=== PATIENT | female | born 1940 | race Caucasian/White ===

== ENCOUNTER → 2016-09-18 | Outpatient (CLI) | payer OTHER, BC | END | disposition home or self-care (01) | DX: M16.11 Unilateral primary osteoarthritis, right hip (principal); M25.551 Pain in right hip; M25.651 Stiffness of right hip, not elsewhere classified; R26.2 Difficulty in walking, not elsewhere classified; M62.89 Other specified disorders of muscle | CPT/HCPCS: 97110 GP; 97150 GO; 97161 GP; 97165 GO; G8978 GP; G8979 GP; G8980 GP; G8987 GO; G8988 GO; G8989 GO ==

== ENCOUNTER 2016-10-15 06:44 | Inpatient (IN) | payer OTHER, BC ==
[~2016-10-15] VITALS: Ht 167.6 cm; Wt 76.3 kg
[~2016-10-15 06:44] MED LIST: AROMASIN25 MG PO; CALCIUM MAGNES1 EAC1 PO; CELEBREX200 MG PO; CELEXA40 MG PO; COENZYME Q1010 M1 PO; COZAAR100 MG PO; HYDROCHLOROTHIA25 MG PO; KRILL OIL500 MG PO; LO-DOSE ASPIRIN81 M2 PO; MULTIPLE VITAM1 EAC4 PO; NORVASC10 MG PO; PRAVACHOL20 MG PO; PRILOSEC10 MG PO; PROBIOTIC1 EAC1 PO; TOPROL XL100 MG PO; TYLENOL ARTHRI650 MG PO; ULTRAM50 MG PO; VITAMIN D31000 UNIT PO; VOLTAREN 1% GE100 GM TP; XALATAN2.5 ML BOTH EYES; XANAX0.5 MG PO; ZEBUTAL 50-3251 EACH PO
[2016-10-15 07:28] VITALS: BP 145/72
[2016-10-15 13:03] VITALS: BP 114/56
[2016-10-15 13:18] LABS: HEMATOCRIT 33.7 % (36.0-46.0); MCH 33.2 PG (29.0-34.0); MCHC 34.4 G/DL (30.0-36.0); MCV 96.6 FL (83-99); MEAN PLAT.VOLUME 10.2 uM^3 (9.5-12.4); PLATELET COUNT 167 K/uL (156-360); RBC DIS.WIDTH-SD 42.2 % (39-53); RED BLOOD COUNT 3.49 M/uL (3.80-5.20); WHITE BLOOD COUNT 11.8 K/uL (4.1-10.2)
[2016-10-15 16:34] VITALS: BP 119/56
[2016-10-15 19:53] VITALS: BP 124/58
[2016-10-15 23:27] VITALS: BP 143/63
[2016-10-16 03:27] VITALS: BP 122/60
[2016-10-16 05:56] LABS: HEMATOCRIT 28.8 % (36.0-46.0)
[2016-10-16 06:22] LABS: ANION GAP 7 MEQ/L (2-14); CHLORIDE 93 MEQ/L (99-109); GFR ESTIMATE (CALCULATED) > 59 mL/min/; GLUCOSE 133 mg/dL (70-99); POTASSIUM 3.7 MEQ/L (3.7-5.4); SAMPLE HEMOLYSIS CHECK 0; SAMPLE ICTERIC CHECK 0; SAMPLE LIPEMIA CHECK 0; SODIUM 126 MEQ/L (136-147); UREA NITROGEN (BUN) 12 mg/dL (9-23)
[2016-10-16 08:09] VITALS: BP 120/58
[2016-10-16 12:03] VITALS: BP 105/54
[2016-10-16 16:08] VITALS: BP 122/60
[2016-10-16 19:15] VITALS: BP 115/56
[2016-10-17] VITALS (7 sets, daily range): BP systolic 105–153; BP diastolic 57–67
[2016-10-17 06:46] LABS: ANION GAP 8 MEQ/L (2-14); CHLORIDE 95 MEQ/L (99-109); GFR ESTIMATE (CALCULATED) > 59 mL/min/; GLUCOSE 115 mg/dL (70-99); POTASSIUM 3.4 MEQ/L (3.7-5.4); SAMPLE HEMOLYSIS CHECK 0; SAMPLE ICTERIC CHECK 0; SAMPLE LIPEMIA CHECK 0; SODIUM 129 MEQ/L (136-147); UREA NITROGEN (BUN) 9 mg/dL (9-23)
[2016-10-17 09:19] LABS: EOSINOPHIL (%) 0.1 % (0-5); HEMATOCRIT 28.8 % (36.0-46.0); IMMATURE GRANULOCYTE (%) 0.3 % (0.0-0.7); LYMPHOCYTE COUNT 1.2 K/uL (1.0-2.8); MCH 34.6 PG (29.0-34.0); MCHC 36.1 G/DL (30.0-36.0); MCV 95.7 FL (83-99); MEAN PLAT.VOLUME 9.5 uM^3 (9.5-12.4); MONOCYTE COUNT 1.1 K/uL (0-0.8); NEUTROPHIL (%) 80.5 % (45-76); PLATELET COUNT 143 K/uL (156-360); RBC DIS.WIDTH-CV 11.8 % (11.8-14.6); RBC DIS.WIDTH-SD 41.2 % (39-53); RED BLOOD COUNT 3.01 M/uL (3.80-5.20); WHITE BLOOD COUNT 12.4 K/uL (4.1-10.2)
[2016-10-18 04:12] VITALS: BP 148/74
[2016-10-18 05:56] LABS: ANION GAP 8 MEQ/L (2-14); CHLORIDE 96 MEQ/L (99-109); GFR ESTIMATE (CALCULATED) > 59 mL/min/; GLUCOSE 107 mg/dL (70-99); POTASSIUM 3.5 MEQ/L (3.7-5.4); SAMPLE HEMOLYSIS CHECK 0; SAMPLE ICTERIC CHECK 0; SAMPLE LIPEMIA CHECK 0; SODIUM 130 MEQ/L (136-147); UREA NITROGEN (BUN) 7 mg/dL (9-23)
[2016-10-18 08:07] VITALS: BP 136/73
[2016-10-18 08:16] VITALS: BP 113/63
[2016-10-18] MEDS ORDERED: LOVENOX40 MG/0.4 SC (09:00)
[2016-10-18] MEDS ORDERED: SODIUM CHLORIDE1 G1 PO (09:02)
[2016-10-18] MEDS ORDERED: HYDROCODON-ACE1 EAC7 PO (09:02)
[2016-10-18] MEDS ORDERED: DOCUSATE SODIU100 MG PO (09:02)
[2016-10-18 11:15] VITALS: BP 133/66
== END 2016-10-18 11:22 | DRG 470 ==
LOC: 3WEST 06:44 → 2SOUTH 06:44 → 3WEST 12:48 → 2SOUTH 13:37 → 3WEST 10-18 11:22
PROVIDERS: Orthopaedic Surgery; Physician Assistant
PROC: 0SR90JA Replacement of Right Hip Joint with Synthetic Substitute, Uncemented, Open Approach (ICD-10-PCS; principal; 2016-10-15)
DX: M16.11 Unilateral primary osteoarthritis, right hip (principal); E87.1 Hypo-osmolality and hyponatremia; E87.6 Hypokalemia; I35.1 Nonrheumatic aortic (valve) insufficiency; I34.0 Nonrheumatic mitral (valve) insufficiency; I10 Essential (primary) hypertension; E78.5 Hyperlipidemia, unspecified; D69.6 Thrombocytopenia, unspecified; K21.9 Gastro-esophageal reflux disease without esophagitis; F41.9 Anxiety disorder, unspecified; Z85.3 Personal history of malignant neoplasm of breast; Z88.5 Allergy status to narcotic agent; Z79.82 Long term (current) use of aspirin
CPT/HCPCS: 36415; 71010; 73502; 80048; 84132; 84295; 85014; 85018; 85025; 85027; 97530 GP; J0131; J0690; J1100; J1170; J1650; J2250; J2405; J7050

== ENCOUNTER 2017-06-03 21:22 | Inpatient (IN) | payer OTHER, BC ==
[~2017-06-03] VITALS: Ht 165.1 cm; Wt 77.2 kg
[~2017-06-03 21:22] MED LIST changes: +CELEXA20 MG PO; -CELEXA40 MG PO; +CYMBALTA30 MG PO; +DIOVAN320 MG PO; +DOCUSATE SODIU100 MG PO; +DULCOLAX5 MG PO; +HYDROCODON-ACE1 EAC7 PO; +LOVENOX40 MG/0.4 SC; -PRILOSEC10 MG PO; +PRILOSEC20 MG PO; +SODIUM CHLORIDE1 G1 PO
[2017-06-04 09:34] VITALS: BP 153/69
[2017-06-04 14:57] LABS: MCH 33.4 PG (29.0-34.0); MCHC 34.7 G/DL (30.0-36.0); MCV 96.3 FL (83-99); PLATELET COUNT 117 K/uL (156-360); RBC DIS.WIDTH-CV 11.5 % (11.8-14.6); RBC DIS.WIDTH-SD 40.7 % (39-53); RED BLOOD COUNT 3.74 M/uL (3.80-5.20); WHITE BLOOD COUNT 7.8 K/uL (4.1-10.2)
[2017-06-04 20:44] VITALS: BP 118/60
[2017-06-04 23:28] VITALS: BP 120/62
[2017-06-05 04:16] VITALS: BP 135/63
[2017-06-05 06:29] LABS: ANION GAP 11 MEQ/L (2-14); CHLORIDE 96 MEQ/L (99-109); POTASSIUM 3.6 MEQ/L (3.7-5.4); SAMPLE HEMOLYSIS CHECK 1; SAMPLE ICTERIC CHECK 0; SAMPLE LIPEMIA CHECK 0; SODIUM 130 MEQ/L (136-147)
[2017-06-05 06:35] LABS: GFR ESTIMATE (CALCULATED) > 59 mL/min/; GLUCOSE 116 mg/dL (70-99); UREA NITROGEN (BUN) 8 mg/dL (9-23)
[2017-06-05 08:11] VITALS: BP 134/69
[2017-06-05 11:29] VITALS: BP 127/62
[2017-06-05 14:16] LABS: HEMATOCRIT 29.9 % (36.0-46.0); MCV 94.6 FL (83-99)
[2017-06-05 15:58] VITALS: BP 126/61
[2017-06-05 23:24] VITALS: BP 125/60
[2017-06-06 07:48] VITALS: BP 122/63
[2017-06-06 09:41] LABS: ANION GAP 12 MEQ/L (2-14); CHLORIDE 93 MEQ/L (99-109); POTASSIUM 3.6 MEQ/L (3.7-5.4); SAMPLE HEMOLYSIS CHECK 0; SAMPLE ICTERIC CHECK 0; SAMPLE LIPEMIA CHECK 0; SODIUM 131 MEQ/L (136-147)
[2017-06-06 09:47] LABS: GFR ESTIMATE (CALCULATED) > 59 mL/min/; GLUCOSE 132 mg/dL (70-99); UREA NITROGEN (BUN) 8 mg/dL (9-23)
[2017-06-06 15:37] VITALS: BP 110/57
[2017-06-06 23:18] VITALS: BP 108/54
[2017-06-07 08:09] VITALS: BP 121/66
[2017-06-07] MEDS ORDERED: LOVENOX40 MG/0.4 SC (08:41)
[2017-06-07] MEDS ORDERED: ENDOCET 5-3251 EACH PO (08:41)
[2017-06-07 10:04] LABS: ANION GAP 8 MEQ/L (2-14); CHLORIDE 92 MEQ/L (99-109); GFR ESTIMATE (CALCULATED) > 59 mL/min/; GLUCOSE 113 mg/dL (70-99); POTASSIUM 3.5 MEQ/L (3.7-5.4); SAMPLE HEMOLYSIS CHECK 0; SAMPLE ICTERIC CHECK 0; SAMPLE LIPEMIA CHECK 0; SODIUM 131 MEQ/L (136-147); UREA NITROGEN (BUN) 7 mg/dL (9-23)
[2017-06-07 11:38] VITALS: BP 119/58
== END 2017-06-07 12:09 | DRG 470 ==
LOC: ENRESERV 21:22 → 3EAST 06-04 08:49 → 2SOUTH 06-04 08:49 → ENRESERV 06-04 15:57 → 3EAST 06-04 20:07
PROVIDERS: Nurse Practitioner Family; Orthopaedic Surgery
PROC: 0SRB0JA Replacement of Left Hip Joint with Synthetic Substitute, Uncemented, Open Approach (ICD-10-PCS; principal; 2017-06-04)
DX: M16.12 Unilateral primary osteoarthritis, left hip (principal); E87.1 Hypo-osmolality and hyponatremia; I10 Essential (primary) hypertension; I08.0 Rheumatic disorders of both mitral and aortic valves; K21.9 Gastro-esophageal reflux disease without esophagitis; E78.00 Pure hypercholesterolemia, unspecified; Z96.641 Presence of right artificial hip joint; Z88.5 Allergy status to narcotic agent; Z85.3 Personal history of malignant neoplasm of breast; Z79.82 Long term (current) use of aspirin
CPT/HCPCS: 71010; 73501; 80048; 85014; 85018; 85027; 97530 GO; 97530 GP; J0131; J0690; J1170; J1650; J2250; J2405; J7030; J7050; Q0175